=== PATIENT | female | born 1975 | race Caucasian/White ===

== ENCOUNTER 2024-09-28 18:07 | Emergency (ER) | payer SELFPAY ==
--- NOTE | 2024-09-28 18:27 | EDNOTE_ITS ---
<Statement entered by La Marks MD - 09/28/24 19:45> As co-signing physician, I was present and available for consult prn. I concur with the plan and care as documented by the midlevel provider. ED General RME/HPI General Chief complaint: Ankle/Foot Injury Stated complaint: BILAT FOOT PAIN, HOMELESS Time Seen by Provider: 09/28/24 18:22 Arrival date/time: 09/28/24 18:07 RME / HPI RME / HPI narrative: 49-year-old female patient with no significant medical history except for homelessness, was brought in by EMS for evaluation regarding bilateral foot pain. Been ongoing for the last few days after walking a lot . Patient sustained blisters to the foot severity mild. Patient is ambulatory. Denies any fever denies any other complaints no medications taken prior to arrival. Related Data Previous Rx's ?Medication ?Instructions ?Recorded ibuprofen 800 mg tablet 800 mg PO TID PRN pain #30 tabs 09/28/24 Allergies Allergy/AdvReac Type Severity Reaction Status Date / Time No Known Allergies Allergy Verified 09/28/24 18:39 Review of Systems Review of Systems Narrative Review of Systems: Review of system reviewed and within normal limits except mentioned in HPI ED Exam Narrative Physical exam: VITAL SIGNS: Reviewed. GENERAL APPEARANCE: Alert and interactive, follows commands, no acute distress, HEAD AND FACE: Non-traumatic. ENT: PERRL, pink conjunctivitis, eyelid no trauma, Mucous membrane moist. NECK: Supple, nontender, no nuchal rigidity. RECTAL: Deferred. GENITAL: Deferred. NEUROLOGICAL: Gross motor function intact sensory function intact, Appropriate for age. MUSCULOSKELETAL: low back nontender, full range of motion. EXTREMITIES: Bilateral foot callus plantar aspect, 1 or 2 blister, no pus noted full range of motion. SKIN: Color pink, dry, no rash, no lacerations, no abrasions, no contusions. LYMPHATICS: Deferred. Course Quality Measures none Orders Category Date Time Status Ketorolac Inj [Toradol Inj] Med 09/28/24 18:25 Discontinued 30 mg IM X1 ONE Trimethoprim/Sulfa 160/800 Ds [Bactrim Ds] Med 09/28/24 18:25 Discontinued 1 tab PO X1 ONE [facility] Patient data External records reviewed:: None Clinical information provided by:: patient Social determinants that could affect healthcare access:: none Patient has the following chronic illnesses:: Homelessness How is presenting disease/condition affected by chronic disease/condition?: uneffected by Evaluation data The following diagnostics were reviewed and interpreted by me:: other (specify) (None) Lab and/or radiology exams considered but not ordered:: None Interpretation Summary: None Medications Medications considered but not ordered:: None Medication administrations:: Medication Administration History Discontinued Medications Ketorolac Tromethamine (Ketorolac Inj 60 Mg/2 Ml Vial) 30 mg IM X1 ONE Stop: 09/28/24 18:26 Last Admin: 09/28/24 18:47 Dose: Not Given Documented By: Non-Admin Reason: Patient Refused Trimethoprim/Sulfamethoxazole (Trimethoprim/Sulfa 160/800 Ds Tablet) 1 tab PO X1 ONE Stop: 09/28/24 18:26 Last Admin: 09/28/24 18:47 Dose: Not Given Documented By: Non-Admin Reason: Patient Refused Patient repeats medications Consultations Consultation(s) initiated? (list below): No Diagnosis Differential Diagnosis ED Complaint MDM: Foot pain, foot blisters cellulitis Most likely diagnosis given after review of the tests above:: Foot pain Admission Indicated Admission indicated?: not indicated Explain why admission is indicated or not indicated:: Stable Admission Request Was there a request for admission?: No Disposition Plan Disposition Plan: Discharge Discharge Attestation Discharge Attestation: The patient was given an opportunity to ask questions and understood the discharge instructions. Discharge instructions specifically effects, indications for sooner follow up or return to the emergency department, and the expected course of current diagnosis. Patient condition: Stable Medical Decision Making Differential Diagnosis Differential Diagnosis: Foot pain, foot blisters cellulitis Discharge Plan Plan Patient Disposition: HOME (Self Care) Disposition Comment: stable Prescriptions/Referrals Prescriptions/Med Rec: New ibuprofen 800 mg tablet 800 mg PO TID PRN (Reason: pain) Qty: 30 0RF Problem List Clinical Impression: Foot pain, bilateral Patient/Caregiver Discharge Instructions Discharge Activity: activity as tolerated Education Materials: Understanding the Pain Response Additional Instructions: Thank you for the opportunity for serving you today. You are stable for discharged . You are advised to: Follow-up with your PCP in 1 to 2 days Return to ED for worsening of symptoms Increase oral fluids Take medication as prescribed Print Language: Qatari Stand Alone Forms: Zainab Award Info., Patient Portal Info Letter PA/SECURITY DOOR INSTALLER Supervising Physician PA/SECURITY DOOR INSTALLER Supervising Physician: MD Selina
[2024-09-28 18:36] VITALS: BMI 22.8
--- NOTE | 2024-09-28 18:47 | PC.NURSE ---
Patient refused medication, attempted x3. Patient states she does NOT want any medicine or tests.
== END 2024-09-28 20:09 | disposition home or self-care (01) ==
LOC: SERX 19:50
PROVIDERS: Emergency Provider Emergency Medicine
DX: M79.671 Pain in right foot (principal); M79.672 Pain in left foot; Z59.00 Homelessness unspecified
CPT/HCPCS: 99283

== ENCOUNTER 2024-09-29 02:45 | Emergency (ER) | payer SELFPAY ==
[2024-09-29 03:13] VITALS: BP 122/80; PULSE 63; RESP 18; TEMP 36.7; O2SAT 99
--- NOTE | 2024-09-29 03:32 | EDNOTE_ITS ---
<Statement entered by La Marks MD - 10/09/24 11:50> As co-signing physician, I was present and available for consult prn. I concur with the plan and care as documented by the midlevel provider. Lower Extremity Injury RME/HPI General Chief Complaint: General Adult/Misc Complain Stated Complaint: BILATERAL LEG PAIN Source: patient Arrival date/time: 09/29/24 02:45 49-year-old female presents emergency department complaining of bilateral leg pain that been ongoing for several years. Patient denies any other associated symptoms. Mode of arrival: ambulatory Limitations: no limitations Related Data Previous Rx's ?Medication ?Instructions ?Recorded ibuprofen 800 mg tablet 800 mg PO TID PRN pain #30 tabs 09/28/24 acetaminophen 500 mg capsule 500 mg PO Q6H PRN pain #30 caps 09/29/24 Allergies Allergy/AdvReac Type Severity Reaction Status Date / Time No Known Allergies Allergy Verified 09/29/24 02:47 Review of Systems Review of Systems Systems Reviewed: All systems reviewed, normal except as documented Constitutional Constitutional: Reports system reviewed and no additional complaints, except as documented, Denies body ache(s), Denies chills and Denies fever(s) Eyes Eyes: Reports system reviewed and no additional complaints, except as documented and Denies change in vision ENT Ears, Nose, Mouth, and Throat: Reports system reviewed and no additional complaints, except as documented, Denies disequilibrium, Denies dizziness, Denies sore throat and Denies vertigo Cardiovascular Cardiovascular: Reports system reviewed and no additional complaints, except as documented, Denies chest pain and Denies dyspnea Respiratory Respiratory: Reports system reviewed and no additional complaints, except as documented, Denies chest congestion, Denies cough and Denies dyspnea Gastrointestinal Gastrointestinal: Reports system reviewed and no additional complaints, except as documented, Denies abdominal pain, Denies nausea and Denies vomiting Musculoskeletal Musculoskeletal: Reports system reviewed and no additional complaints, except as documented, Denies abnormal gait and Denies arthralgias Integumentary/Breasts Skin/Breast: Reports system reviewed and no additional complaints, except as documented, Denies erythema, Denies rash and Denies wounds Neurologic Neurologic: Reports system reviewed and no additional complaints, except as documented, Denies abnormal gait, Denies disequilibrium, Denies dizziness and Denies vertigo Past Medical History Social History SMOKING STATUS: Current some day smoker ED Exam General Limitations: Present no limitations General appearance: Present alert and in no apparent distress Head Head exam: Present atraumatic Eye Eye exam: Present normal appearance, PERRL and EOMI ENT ENT exam: Present normal exam, normal oropharynx and mucous membranes moist Neck Neck exam: Present normal inspection, full ROM and trachea midline Chest Chest inspection: Present normal inspection and symmetric chest wall rise Respiratory Respiratory exam: Present normal lung sounds bilaterally Cardiovascular Cardiovascular exam: Present regular rate, normal rhythm and normal heart sounds Abdominal Exam Abdominal exam: Present soft and normal bowel sounds Extremities Exam Extremities exam: Present normal inspection and full ROM Back Exam Back exam: Present normal inspection and full ROM Neurological Exam Neurological exam: Present alert, oriented X3 and CN II-XII intact Psychiatric Psychiatric exam: Present normal affect and normal mood Skin Skin exam: Present warm, dry, intact and normal color Course Quality Measures none Orders Category Date Time Status Acetaminophen Tab [Tylenol ES Tab] Med 09/29/24 03:32 Discontinued 1,000 mg PO X1 ONE Vital Signs Vital signs: Vital Signs Temperature 98.0 F 09/29/24 03:13 Pulse Rate 63 09/29/24 03:13 Respiratory Rate 18 09/29/24 03:13 Blood Pressure 122/80 09/29/24 03:13 Pulse Oximetry (%) 99 09/29/24 03:13 Oxygen Delivery Method Room Air 09/29/24 03:13 99% room air within normal limits Extremity Injury, Lower MDM Narrative MDM Narrative:: 49-year-old female presents emergency department complaining of bilateral leg pain that been ongoing for several years. Patient denies any other associated symptoms. Patient appears nontoxic hemodynamically stable. Patient GCS 15 ambulatory. No obvious edema observed or signs of infection to feet. Patient discharged and instructed to follow-up with primary care provider return to emergency department for any worsening symptoms or as needed. Patient data External records reviewed:: [facility] previous records Clinical information provided by:: patient Social determinants that could affect healthcare access:: mental health Patient has the following chronic illnesses:: Seizure How is presenting disease/condition affected by chronic disease/condition?: uneffected by Evaluation data The following diagnostics were reviewed and interpreted by me:: other (specify) (Not applicable) Lab and/or radiology exams considered but not ordered:: Not applicable Interpretation Summary: Not applicable Medications / Prescriptions Medications or Prescriptions considered but not ordered:: Ordered Medication administrations:: Medication Administration History Discontinued Medications Acetaminophen (Acetaminophen 500 Mg Tablet) 1,000 mg PO X1 ONE Stop: 09/29/24 03:33 Last Admin: 09/29/24 03:42 Dose: 1,000 mg Documented By: CVL Given Consultations Consultation(s) initiated? (list below): No Diagnosis Extremity Injury, Lower Differential Diagnosis: ankle sprain and strain, fracture of toe and ankle fracture Most likely diagnosis given after review of the tests above:: Bilateral foot pain Admission Indicated Admission indicated?: not indicated Admission Request Was there a request for admission?: No Disposition Plan Disposition Plan: Discharge Discharge Attestation Discharge Attestation: The patient and all family members were given an opportunity to ask questions and understood the discharge instructions. Discharge instructions specifically effects, indications for sooner follow up or return to the emergency department, and the expected course of current diagnosis. Patient condition: Stable Discharge Plan Plan Patient Disposition: HOME (Self Care) Disposition Comment: Stable Prescriptions/Referrals Prescriptions/Med Rec: New acetaminophen 500 mg capsule 500 mg PO Q6H PRN (Reason: pain) Qty: 30 0RF No Action ibuprofen 800 mg tablet 800 mg PO TID PRN (Reason: pain) Qty: 30 0RF Problem List Clinical Impression: Foot pain, bilateral Patient/Caregiver Discharge Instructions Discharge Activity: activity as tolerated Education Materials: ED Myalgias Additional Instructions: Take medication for pain as needed. Follow-up with primary care provider in 24 to 48 hours. Return to emergency department for any worsening symptoms or as needed. Print Language: Australian Stand Alone Forms: Zainab Nicholson Info., Patient Portal Info Letter FRANKIE/KELSEA Supervising Physician FRANKIE/KELSEA Supervising Physician: Dr. Marks
[2024-09-29 03:42] VITALS: RESP 18
[2024-09-29] MEDS: ACETAMINOPHEN 500 MG TABLET 1000 MG PO (03:42)
== END 2024-09-29 04:14 | disposition home or self-care (01) ==
PROVIDERS: Emergency Provider Emergency Medicine
DX: M79.671 Pain in right foot (principal); M79.672 Pain in left foot
CPT/HCPCS: 99282; A9270

== ENCOUNTER 2024-09-29 17:15 | Emergency (ER) | payer MEDICAID, SELFPAY ==
[2024-09-29 17:16] VITALS: BMI 22.3
[2024-09-29 17:37] VITALS: BP 128/86; PULSE 88; RESP 18; TEMP 37.2; O2SAT 99
--- NOTE | 2024-09-29 17:40 | PD.EDADULT ---
ED General RME/HPI General Chief complaint: General Adult/Misc Complain Stated complaint: WANTS MED TO SLEEP, SEEN TWICE YESTERDAY Time Seen by Provider: 09/29/24 17:39 Source: patient, RN notes reviewed and old records reviewed Arrival date/time: 09/29/24 17:15 Mode of arrival: ambulatory Limitations: no limitations RME / HPI RME / HPI narrative: 49yof presents to ED for unable to sleep x 1 year, requesting medication. Patient was seen in ED twice yesterday for bilateral foot pain, patient is currently homeless. No sob, cp, n/v, SI/HI or AVH reported. 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 Related Data Previous Rx's ?Medication ?Instructions ?Recorded ibuprofen 800 mg tablet 800 mg PO TID PRN pain #30 tabs 09/28/24 acetaminophen 500 mg capsule 500 mg PO Q6H PRN pain #30 caps 09/29/24 hydroxyzine pamoate 50 mg capsule 50 mg PO .qhs #14 caps 09/29/24 Allergies Allergy/AdvReac Type Severity Reaction Status Date / Time No Known Allergies Allergy Verified 09/29/24 17:18 Review of Systems Review of Systems Systems Reviewed: All systems reviewed, normal except as documented Cardiovascular Cardiovascular: Denies chest pain and Denies dyspnea Respiratory Respiratory: Denies dyspnea Psychiatric Psychiatric: Reports abnormal sleep pattern, Denies anxiety, Denies hallucinations, Denies homicidal ideation, Denies suicidal ideation and Denies visual hallucinations Past Medical History Social History SMOKING STATUS: Current some day smoker SUBSTANCE USE: marijuana and methamphetamine ALCOHOL: Current ED Exam General Limitations: Present no limitations General appearance: Present alert, in no apparent distress and other (disheveled, poor hygiene) Head Head exam: Present atraumatic and normocephalic Eye Eye exam: Present normal appearance, PERRL and EOMI ENT ENT exam: Present normal exam and mucous membranes moist Neck Neck exam: Present normal inspection and full ROM Chest Chest inspection: Present normal inspection and symmetric chest wall rise Respiratory Respiratory exam: Present normal lung sounds bilaterally; Absent respiratory distress Cardiovascular Cardiovascular exam: Present regular rate and normal rhythm Extremities Exam Extremities exam: Present normal inspection and full ROM Neurological Exam Neurological exam: Present alert and oriented X3 Psychiatric Psychiatric exam: Present normal affect and normal mood; Absent homicidal ideation or suicidal ideation Skin Skin exam: Present warm, dry and intact Course Quality Measures none Vital Signs Vital signs: Vital Signs Temperature 99 F 09/29/24 17:37 Pulse Rate 88 09/29/24 17:37 Respiratory Rate 18 09/29/24 17:37 Blood Pressure 128/86 H 09/29/24 17:37 Pulse Oximetry (%) 99 09/29/24 17:37 Oxygen Delivery Method Room Air 09/29/24 17:37 [facility] Patient data External records reviewed:: [facility] previous records (ED visit 09/28/24 for b/l foot pain) Clinical information provided by:: patient Social determinants that could affect healthcare access:: housing Patient has the following chronic illnesses:: substance use How is presenting disease/condition affected by chronic disease/condition?: exacerbated by Evaluation data The following diagnostics were reviewed and interpreted by me:: other (specify) (none) Lab and/or radiology exams considered but not ordered:: none Interpretation Summary: na Medications Medications considered but not ordered:: none Medication administrations:: none Consultations Consultation(s) initiated? (list below): No Diagnosis Differential Diagnosis ED Complaint MDM: insomnia, psychosis, acute cong, substance use, anxiety Most likely diagnosis given after review of the tests above:: insomnia Admission Indicated Admission indicated?: not indicated Explain why admission is indicated or not indicated:: patient is clinically stable for outpatient mgmt Admission Request Was there a request for admission?: No Disposition Plan Disposition Plan: Discharge Discharge Attestation Discharge Attestation: The patient and all family members were given an opportunity to ask questions and understood the discharge instructions. Discharge instructions specifically effects, indications for sooner follow up or return to the emergency department, and the expected course of current diagnosis. Patient condition: Stable Medical Decision Making MDM Narrative MDM Narrative: 49yof presents to ED for unable to sleep x 1 year, requesting medication. Patient was seen in ED twice yesterday for bilateral foot pain, patient is currently homeless. No sob, cp, n/v, SI/HI or AVH reported. 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 Encouraged close follow up with mental health or pcp clinic. Patient is non-toxic appearing, vitals are stable. RTED precautions given. Differential Diagnosis Differential Diagnosis: insomnia, psychosis, acute cong, substance use, anxiety Discharge Plan Plan Patient Disposition: HOME (Self Care) Patient condition on transfer: Stable Prescriptions/Referrals Prescriptions/Med Rec: New hydroxyzine pamoate 50 mg capsule 50 mg PO .qhs Qty: 14 0RF No Action ibuprofen 800 mg tablet 800 mg PO TID PRN (Reason: pain) Qty: 30 0RF acetaminophen 500 mg capsule 500 mg PO Q6H PRN (Reason: pain) Qty: 30 0RF Problem List Clinical Impression: Insomnia Patient/Caregiver Discharge Instructions Education Materials: ED Insomnia Print Language: Yakut Stand Alone Forms: Zainab Award Info., Patient Portal Info Letter PA/COMBER FIXER Supervising Physician PA/COMBER FIXER Supervising Physician: Krystal
== END 2024-09-29 17:47 | disposition home or self-care (01) ==
LOC: SERX 18:02
PROVIDERS: Emergency Provider Emergency Medicine
DX: G47.00 Insomnia, unspecified (principal); M79.672 Pain in left foot; M79.671 Pain in right foot; Z59.00 Homelessness unspecified
CPT/HCPCS: 99281

== ENCOUNTER 2024-10-13 14:38 | Emergency (ER) | payer MEDICAID, SELFPAY ==
[2024-10-13 14:45] VITALS: BP 97/56; PULSE 91; RESP 16; O2SAT 99; BMI 23.1
--- NOTE | 2024-10-13 14:46 | PD.EDADULT ---
ED General RME/HPI General Chief complaint: Medical Clearance Stated complaint: CLEARANCE Time Seen by Provider: 10/13/24 14:46 Arrival date/time: 10/13/24 14:38 RME / HPI RME / HPI narrative: 41-year-old female brought in by police department for public intoxication who was sent in to the emergency department for blood pressure check. She is agitated and poorly compliant with assessment. Related Data Previous Rx's ?Medication ?Instructions ?Recorded ibuprofen 800 mg tablet 800 mg PO TID PRN pain #30 tabs 09/28/24 acetaminophen 500 mg capsule 500 mg PO Q6H PRN pain #30 caps 09/29/24 hydroxyzine pamoate 50 mg capsule 50 mg PO .qhs #14 caps 09/29/24 Allergies Allergy/AdvReac Type Severity Reaction Status Date / Time No Known Allergies Allergy Verified 09/29/24 17:18 ED Exam Narrative Physical exam: GENERAL APPEARANCE: AxOx4, nontoxic, very, loud, belligerent, screaming directed profanities at the police surgeon, in law enforcement restraints, poorly cooperative. HEENT: NC, AT. MMM. EOMI, clear conjunctiva, oropharynx clear. NECK: Supple without lymphadenopathy. No stiffness or restricted ROM. HEART: Normal rate and regular rhythm, normal S1/S1, no m/r/g LUNGS: CTAB, moving air well. No crackles or wheezes are heard. ABDOMEN: Soft, nontender, nondistended with good bowel sounds heard. BACK: No midline C/T/L spine pain or deformity, No CVAT, no obvious deformity. EXTREMITIES: Without cyanosis, clubbing or edema. MUSCULOSKELETAL: FROM of all major joints, no chest tenderness NEUROLOGICAL: Grossly nonfocal. Alert and oriented, moving all 4 extremities. CN not formally tested but appear grossly intact. Observed to ambulate with normal gait. Skin: Warm and dry without any rash. Course Course Course Narrative: Patient remained very animated, without signs of clinical toxicity throughout her encounter here in the emergency Quality Measures none Vital Signs Vital signs: Vital Signs Pulse Rate 91 10/13/24 14:45 Respiratory Rate 16 10/13/24 14:45 Blood Pressure 97/56 L 10/13/24 14:45 Pulse Oximetry (%) 99 10/13/24 14:45 Oxygen Delivery Method Room Air 10/13/24 14:45 [facility] Patient data External records reviewed:: [facility] previous records Clinical information provided by:: patient and law enforcement Social determinants that could affect healthcare access:: none Patient has the following chronic illnesses:: Unknown How is presenting disease/condition affected by chronic disease/condition?: no chronic disease (Unknown) Evaluation data The following diagnostics were reviewed and interpreted by me:: other (specify) (Workup not indicated) Lab and/or radiology exams considered but not ordered:: None Interpretation Summary: Not applicable Medications Medications considered but not ordered:: None Medication administrations:: None Consultations Consultation(s) initiated? (list below): No Diagnosis Differential Diagnosis ED Complaint MDM: Drug-induced psychosis, alcohol intoxication, stimulant/methamphetamine Most likely diagnosis given after review of the tests above:: See below Admission Indicated Admission indicated?: not indicated Explain why admission is indicated or not indicated:: As per narrative Admission Request Was there a request for admission?: No Disposition Plan Disposition Plan: Discharge Discharge Attestation Discharge Attestation: The patient and all family members were given an opportunity to ask questions and understood the discharge instructions. Discharge instructions specifically effects, indications for sooner follow up or return to the emergency department, and the expected course of current diagnosis. Patient condition: Stable Medical Decision Making MDM Narrative MDM Narrative: Ms. De Jesus was sent to the emergency department with concerns of blood pressure possibly being low. Here she is anything but low, she is quite animated, yelling, screaming profanities directed at the police surgeon. She does not appear delirious or medically ill, simply behaviorally uninhibited likely secondary to intoxicants. As course but notes this is why she is in custody. If she does have stable vital signs, she has a borderline low blood pressure but with a normal MAP. This is important to note that was taken with her stroke and a sweater on as she refused to remove it. Regardless given her current state, is not consistent with a pathologically low blood pressure, she does have a normal MAP here. Is appropriate for intermediate and is medically cleared for booking. Differential Diagnosis Differential Diagnosis: Drug-induced psychosis, alcohol intoxication, stimulant/methamphetamine Discharge Plan Plan Patient Disposition: Long Term/Court/Law Prescriptions/Referrals Prescriptions/Med Rec: No Action hydroxyzine pamoate 50 mg capsule 50 mg PO .qhs Qty: 14 0RF ibuprofen 800 mg tablet 800 mg PO TID PRN (Reason: pain) Qty: 30 0RF acetaminophen 500 mg capsule 500 mg PO Q6H PRN (Reason: pain) Qty: 30 0RF Problem List Clinical Impression: Alcohol intoxication, Nondependent amphetamine or related acting sympathomimetic abuse, continuous Patient/Caregiver Discharge Instructions Education Materials: ED Drug Abuse, ED Alcohol Intoxication Additional Instructions: Do not use illicit drugs or drink excessive alcohol. Consider stopping these completely for better health. You can follow-up with your primary care doctor and/or [facility] if you feel ready for alcohol and/or drug rehabilitation. Print Language: American
== END 2024-10-13 15:07 ==
LOC: SERX 14:54
PROVIDERS: Emergency Provider Emergency Medicine
DX: Z02.89 Encounter for other administrative examinations (principal); F10.129 Alcohol abuse with intoxication, unspecified; F15.10 Other stimulant abuse, uncomplicated
CPT/HCPCS: 99281

== ENCOUNTER 2025-06-24 13:21 | Emergency (ER) | payer MEDICAID, SELFPAY ==
[2025-06-24 13:26] VITALS: BP 118/77; PULSE 77; RESP 19; TEMP 36.8; O2SAT 98
--- NOTE | 2025-06-24 13:31 | EDNOTE_ITS ---
ED Medical Clearance RME/HPI General Chief complaint: Medical Clearance Stated complaint: INTERMEDIATE CHECK Time Seen by Provider: 06/24/25 13:29 Arrival date/time: 06/24/25 13:21 Patient presents to the ER handcuffed with 2 [employer] escort loud belligerent cussing but not aggressive or swinging. PD is requesting vital signs as they are not unable to to obtain them at in processing. Patient is awake alert very animated with a loud voice. No specific complaints refusing care or treatment Related Information Previous Rx's ?Medication ?Instructions ?Recorded ibuprofen 800 mg tablet 800 mg PO TID PRN pain #30 t abs 09/28/24 acetaminophen 500 mg capsule 500 mg PO Q6H PRN pain #3 0 caps 09/29/24 hydroxyzine pamoate 50 mg capsule 50 mg PO .qhs #14 ca ps 09/29/24 Allergies Allergy/AdvReac Type Severity Reaction Status Date / Time No Known Allergies Allergy Verified 09/29/24 17:18 Review of Systems Review of Systems Systems Reviewed: All systems reviewed, normal except as documented Past Medical History Social History SMOKING STATUS: Unknown if ever smoked SUBSTANCE USE: marijuana and methamphetamine ED Exam Narrative Physical exam: [General: Thin but not emaciated. Appears not in any acute distress Head normocephalic HEENT: Within acceptable limits Neck is supple nontender Chest equal chest rise nontender to palpation Respiratory: Clear to auscultation no wheezes crackles or rubs CV: Rate rhythm is regular no murmurs rubs or clicks Back: No CVA tenderness no spinous process tenderness from cervical spine thoracic and lumbar spine Skin: Intact no petechiae rash induration ulceration or crepitus Extremities: Moving all extremity against resistance cap refill less than 2 seconds neurosensory intact. Observed ambulating without complication Course Quality Measures VTE prophylaxis Vital Signs Vital signs: Vital Signs Temperature 98.2 F 06/24/25 13:26 Pulse Rate 77 06/24/25 13:26 Respiratory Rate 19 06/24/25 13:26 Blood Pressure 118/77 06/24/25 13:26 Pulse Oximetry (%) 98 06/24/25 13:26 Oxygen Delivery Method Room Air 06/24/25 13:26 Medical Clearance Patient data External records reviewed:: [facility] previous records Clinical information provided by:: patient and law enforcement Social determinants that could affect healthcare access:: substance use Patient has the following chronic illnesses:: Substance abuse How is presenting disease/condition affected by chronic disease/condition?: e xacerbated by Evaluation data The following diagnostics were reviewed and interpreted by me:: other (specify) (None) Lab and/or radiology exams considered but not ordered:: None Interpretation Summary: Medical clearance Medications / Prescriptions Medications or Prescriptions considered but not ordered:: None none Medication administrations:: None Consultations Consultation(s) initiated? (list below): No Diagnosis Medical Clearance Differential Diagnosis: other (None) Most likely diagnosis given after review of the tests above:: Medical clearance Admission Indicated Admission indicated?: not indicated Admission Request Was there a request for admission?: No Disposition Plan Disposition Plan: Discharge Discharge Attestation Discharge Attestation: The patient and all family members were given an opportunity to ask questions and understood the discharge instructions. Discharge instructions specifically effects, indications for sooner follow up or return to the emergency department, and the expected course of current diagnosis. Patient condition: Stable Discharge Plan Plan Patient Disposition: Group Home/Court/Law Patient condition on transfer: Stable Prescriptions/Referrals Prescriptions/Med Rec: No Action hydroxyzine pamoate 50 mg capsule 50 mg PO .qhs Qty: 14 0RF ibuprofen 800 mg tablet 800 mg PO TID PRN (Reason: pain) Qty: 30 0RF acetaminophen 500 mg capsule 500 mg PO Q6H PRN (Reason: pain) Qty: 30 0RF Problem List Clinical Impression: Medical clearance for incarceration Patient/Caregiver Discharge Instructions Print Language: Grenadian FRANKIE/KELSEA Supervising Physician PA/MANAGER EQUITY Supervising Physician: Gregory Montgomery ENP
[2025-06-24 13:35] VITALS: BMI 21.1
== END 2025-06-24 13:40 ==
LOC: SERX 13:36
PROVIDERS: Emergency Provider Emergency Medicine
DX: Z02.89 Encounter for other administrative examinations (principal)
CPT/HCPCS: 99281